=== PATIENT | male | born 1980 | race Caucasian/White ===

== ENCOUNTER 2020-03-12 10:46 | Day surgery (SDC) | payer OTHER ==
[~2020-03-12 10:46] MED LIST: Bupivacaine 0.5% 50 ML MDV ONE
[2020-03-12] MEDS ORDERED: Lactated Ringers 1,000 ML IV SCH (11:15)
[2020-03-12] MEDS ORDERED: Propofol 200 MG/20 ML SDV ONE ×2 (11:41→12:15)
[2020-03-12] MEDS ORDERED: Midazolam 1 MG/ML 2 ML SDV ONE ×2 (11:41→12:22)
[2020-03-12] MEDS ORDERED: fentaNYL 100 MCG/2 ML SDV ONE (11:41)
[2020-03-12] MEDS ORDERED: Clindamycin Phosphate 900 MG in Sodium Chloride 0.9% 100 ML IV ONE (12:00)
--- NOTE | 2020-03-12 15:19 | OR ---
DATE OF PROCEDURE: 03/12/2020 SURGEON: Shubham Rivera DPM PROGRAM HOST: None. PREOPERATIVE DIAGNOSIS: Displaced closed fracture, right great toe proximal phalanx. POSTOPERATIVE DIAGNOSIS: Displaced closed fracture, right great toe proximal phalanx. PROCEDURE: Closed reduction with pinning of right great toe. ANESTHESIA: Local with IV sedation. HEMOSTASIS: Obtained with an ankle tourniquet on the right ankle at 300 mmHg. ESTIMATED BLOOD LOSS: 1 mL. MATERIALS: One 1.6 mm K-wire was used. INJECTABLES: A total of 19 mL of Marcaine 0.5% plain were injected prior to prep. CONDITION: Stable. PATHOLOGY: None. INDICATIONS FOR SURGERY: Displaced closed fracture with dorsal angulation of the proximal phalanx of the right great toe. PROCEDURE IN DETAIL: Patient was brought to the operating room, placed on the operating table in supine position. Following IV sedation, anesthesia was obtained with a total of 19 mL of Marcaine 0.5% plain in a [place] type block. The right foot was then scrubbed, prepped, and draped in the usual aseptic manner and raised to 60 degrees for hemostasis and exsanguinated using Esmarch bandage. Tourniquet was inflated. Foot was lowered to the table. Then, the fracture site in the proximal phalanx was reduced by first increasing the deformity, then distracting and reducing the deformity. This was then held in place and immediately pinned with a 1.6 mm K-wire. The reduction was checked both visually and fluoroscopically and found to be anatomic, so the pin was left in place. Dr. Rivera took fluoroscopic views in both the AP, oblique, and lateral and found good reduction with hindu with reduction of the dorsiflexion deformity that had been in the proximal phalanx. K-wire site was dressed with Xeroform and 4x4s, and then Kerlix and Coban on the right foot. The patient was then returned to recovery room with vital signs stable and vascular status intact to both feet. The patient was given instructions for rest, ice, and elevate the right foot. Keep dressings clean, dry, and intact. Weight bear on the heel only in his Cam boot with crutches. We gave him prescriptions for [place] 5/325 one tab p.o. q.6h p.r.n. pain, dispensed #20 and also Vistaril 25 mg one tab p.o. q.8 h p.r.n. pain, dispensed #30, and tramadol 10 mg one tablet p.o. q.6 h until gone, dispensed #20. The patient to return to clinic with Dr. Rivera in one week, at which time, he will be re-evaluated and will get followup x-rays of his right foot in 3 views. Shubham Rivera DPM /[id number]
== END 2020-03-12 13:55 | disposition home or self-care (01) ==
LOC: JP.SDS 10:46
PROVIDERS: ATTEND Podiatrist Foot & Ankle Surgery
DX: S92.411A Displaced fracture of proximal phalanx of right great toe, initial encounter for closed fracture (principal); I10 Essential (primary) hypertension; N52.9 Male erectile dysfunction, unspecified; E03.9 Hypothyroidism, unspecified; F17.220 Nicotine dependence, chewing tobacco, uncomplicated; E66.9 Obesity, unspecified; Z68.41 Body mass index [BMI] 40.0-44.9, adult; Z98.890 Other specified postprocedural states; Z79.899 Other long term (current) drug therapy; Z79.890 Hormone replacement therapy; Z88.1 Allergy status to other antibiotic agents; N28.9 Disorder of kidney and ureter, unspecified
CPT/HCPCS: 28496; J2250; J2704; J3010; J3490; J7120